=== PATIENT | female | born 1960 | race African-American/Black ===

== ENCOUNTER 2021-04-07 14:34 | Inpatient (IN) | payer SELFPAY ==
[~2021-04-07 14:34] MED LIST: Iopamidol-370 76% 500 ML 1 ML ONE
[2021-04-07] MEDS ORDERED: niCARdipine 20MG In NaCl 20 MG/200 ML BAG ONE (14:43)
[2021-04-07] MEDS ORDERED: Ondansetron PF 4 MG/2 ML Vial ONE ×2 (14:49→14:57)
[2021-04-07] MEDS ORDERED: Labetalol HCl 100 MG/20 ML VIAL ONE ×3 (14:49→19:12)
[2021-04-07 14:53] LABS: #Basophils 0.1 thou/uL (0.0-0.2); #Eosinphils 0.1 thou/uL (0.0-0.7); #Lymphocytes 1.8 thou/uL (1.20-3.40); #Monocytes 0.4 thou/uL (0.11-0.59); #Neutrophils 4.7 thou/uL (1.40-6.50); %Basophils 1.1 % (0.0-1.0); %Eosinophils 1.1 % (0.0-10.0); %Lymphocytes 25.4 % (21.0-51.0); %Monocytes 5.4 % (0.0-10.0); Hemoglobin 14.8 g/dL (12.0-16.0); Mean Corpuscular HGB CONC 32.5 g/dL (32.0-36.0); Mean Corpuscular Hemoglobin 29.7 pg (27.0-31.0); Mean Corpuscular Volume 91.4 fL (78.0-98.0); Mean Platelet Volume 9.8 fL (7.4-10.4); Platelet Count 218 thou/uL (130-400); RBC Distribution Width 12.5 % (11.5-14.5); Red Blood Cell (RBC) Count 4.98 mill/uL (4.20-5.40)
[2021-04-07 14:59] LABS: Prothrombin Time 12.8 sec (12.0-14.7)
[2021-04-07 15:00] LABS: PTT 24.2 sec (22.9-36.1)
[2021-04-07 15:42] LABS: Bilirubin Negative (Negative); Blood, Urine Negative (Negative); Clarity Clear (Clear); Glucose, Urine (Dipstick) 50 mg/dL (Negative); Ketone, Urine Trace mg/dL (Negative); Leukocyte Negative Leu/uL (Negative); Nitrite Negative (Negative); Protein, Urine (Dipstick) 20 mg/dL (Neg-Trace); Specific Gravity, Urine 1.026 (1.002-1.036); Urobilinogen Normal mg/dL (Less than 2)
[2021-04-07] MEDS ORDERED: Fentanyl 100 MCG/2 ML VIAL ONE (15:52)
[2021-04-07 16:15] LABS: Albumin 4.2 g/dL (3.4-4.8)
[2021-04-07] MEDS ORDERED: Lidocaine 1% PF 5 ML VIAL ONE (16:15)
[2021-04-07] MEDS ORDERED: Dexamethasone 20 MG/5 ML VIAL ONE (16:15)
[2021-04-07] MEDS ORDERED: Glycopyrrolate 0.2 MG/ML 5 ML SYRINGE ONE (16:15)
[2021-04-07] MEDS ORDERED: Rocuronium Bromide 10 MG/ML (10ML VIAL) ONE (16:15)
[2021-04-07] MEDS ORDERED: PROPOFOL 200 MG/20 ML VIAL ONE (16:15)
[2021-04-07] MEDS ORDERED: PHENYLEPHRINE-NS 100 MCG/ML 10 ML SYRINGE ONE (16:15)
[2021-04-07 16:16] LABS: Chloride 101 mmol/L (98-107); Potassium 3.3 mmol/L (3.5-5.1); Sodium 138 mmol/L (136-145)
[2021-04-07 16:17] LABS: Calcium 9.8 mg/dL (7.8-10.44); Globulin 3.8 g/dL (2.4-3.5); Glucose 148 mg/dL (80-115)
[2021-04-07 16:18] LABS: SARS-CoV-2 NAA Rapid Test Not Detected (NotDetected)
[2021-04-07 16:19] LABS: Anion Gap 17 mmol/L (10-20); Bilirubin, Total 0.7 mg/dL (0.2-1.2); Carbon Dioxide 23 mmol/L (23-31)
[2021-04-07 16:20] LABS: Alkaline Phosphatase 71 U/L (40-110); Calc. Creatinine Clearance 0 mL/min (70-130)
[2021-04-07 16:21] LABS: BUN (Urea Nitrogen) 14 mg/dL (9.8-20.1)
[2021-04-07 16:22] LABS: AST (SGOT) 42 U/L (5-34)
[2021-04-07 16:23] LABS: ALT (SGPT) 39 U/L (8-55); CK (CPK) 162 U/L (29-168)
[2021-04-07] MEDS ORDERED: Promethazine HCl 25 MG/ML VIAL IM PRN ×2 (17:38→19:03)
[2021-04-07] MEDS ORDERED: Promethazine HCl 25 MG/ML VIAL IVPB PRN (17:38)
[2021-04-07] MEDS ORDERED: Ondansetron HCl/PF 4 MG/2 ML Vial IVP PRN (17:38)
[2021-04-07] MEDS ORDERED: hydrALAZINE 20 MG/ML VIAL SLOW IVP PRN (17:40)
[2021-04-07] MEDS ORDERED: Morphine 2 MG/ML VIAL SLOW IVP PRN (17:41)
[2021-04-07] MEDS ORDERED: Labetalol HCl 100 MG/20 ML VIAL SLOW IVP PRN (17:41)
[2021-04-07] MEDS ORDERED: Acetaminophen/Codeine 30-300mg Tablet PO PRN (17:42)
[2021-04-07] MEDS ORDERED: Acetaminophen 325 MG TAB PO PRN (18:10)
[2021-04-07] MEDS ORDERED: niCARdipine 25 MG in Sodium Chloride 0.9% 250 ML 250 ML IVPB SCH (18:15)
[2021-04-07] MEDS ORDERED: niCARdipine 25 MG in Sodium Chloride 0.9% 250 ML 240 ML IVPB SCH (20:00)
[2021-04-07] MEDS: Sodium Chloride 0.9% 1,000 ML IV SCH (21:56)
[2021-04-07] MEDS: Docusate 100 MG CAP PO SCH (21:57)
[2021-04-07] MEDS: niCARdipine 50 MG in Sodium Chloride 0.9% 250 ML 230 ML IV SCH (22:15)
[2021-04-07] MEDS: Morphine 4 MG/ML VIAL SLOW IVP PRN (22:17)
[2021-04-07] MEDS: ceFAZolin Sodium/D5W 2 GM in Premix Bag 1 BAG IVPB SCH (23:29)
[2021-04-08] MEDS: Morphine 4 MG/ML VIAL SLOW IVP PRN ×3 (01:32→21:39)
[2021-04-08] MEDS: niCARdipine 50 MG in Sodium Chloride 0.9% 250 ML 230 ML IV SCH ×5 (02:00→22:29)
[2021-04-08] MEDS: levETIRAcetam in NS 500 MG in Premix Bag 1 BAG IVPB SCH ×2 (04:06→16:26)
[2021-04-08] MEDS: Sodium Chloride 0.9% 1,000 ML IV SCH ×2 (04:07→22:28)
[2021-04-08 04:15] LABS: #Lymphocytes 0.4 thou/uL (1.20-3.40); #Monocytes 0.2 thou/uL (0.11-0.59); #Neutrophils 7.9 thou/uL (1.40-6.50); %Eosinophils 0.2 % (0.0-10.0); %Lymphocytes 4.6 % (21.0-51.0); %Monocytes 1.9 % (0.0-10.0); %Neutrophils 93.3 % (42.0-75.0); Hemoglobin 11.8 g/dL (12.0-16.0); Mean Corpuscular HGB CONC 35.9 g/dL (32.0-36.0); Mean Corpuscular Hemoglobin 32.9 pg (27.0-31.0); Mean Corpuscular Volume 91.7 fL (78.0-98.0); Mean Platelet Volume 9.7 fL (7.4-10.4); Platelet Count 149 thou/uL (130-400); RBC Distribution Width 12.3 % (11.5-14.5); White Blood Cell (WBC) Count 8.4 thou/uL (4.8-10.8)
[2021-04-08 04:59] LABS: ALT (SGPT) 22 U/L (8-55); AST (SGOT) 20 U/L (5-34); Albumin 2.8 g/dL (3.4-4.8); Alkaline Phosphatase 47 U/L (40-110); Anion Gap 13 mmol/L (10-20); BUN (Urea Nitrogen) 10 mg/dL (9.8-20.1); Bilirubin, Total 0.5 mg/dL (0.2-1.2); Calc. Creatinine Clearance 0 mL/min (70-130); Calcium 6.4 mg/dL (7.8-10.44); Carbon Dioxide 16 mmol/L (23-31); Chloride 113 mmol/L (98-107); Globulin 2.2 g/dL (2.4-3.5); Glucose 137 mg/dL (80-115); Potassium 2.7 mmol/L (3.5-5.1); Sodium 139 mmol/L (136-145)
[2021-04-08] MEDS ORDERED: Electrolyte Replacement Protocol FS PRN (05:30)
[2021-04-08] MEDS ORDERED: Electrolyte Replacement Protocol 1 EACH FS SCH (05:30)
[2021-04-08] MEDS: Potassium Chloride 40 MEQ in Sodium Chloride 0.9% 250 ML 250 ML IVPB SCH ×2 (06:05→10:53)
[2021-04-08 06:47] LABS: Magnesium 1.3 mg/dL (1.6-2.6)
[2021-04-08] MEDS ORDERED: Magnesium Sulfate 4 GM in Sodium Chloride 0.9% 250 ML 250 ML IVPB SCH (07:00)
[2021-04-08] MEDS: Docusate 100 MG CAP PO SCH ×2 (08:32→22:25)
[2021-04-08] MEDS: ceFAZolin Sodium/D5W 2 GM in Premix Bag 1 BAG IVPB SCH (10:12)
[2021-04-08 18:17] LABS: Anion Gap 13 mmol/L (10-20); BUN (Urea Nitrogen) 12 mg/dL (9.8-20.1); Calc. Creatinine Clearance 100 mL/min (70-130); Calcium 8.5 mg/dL (7.8-10.44); Carbon Dioxide 21 mmol/L (23-31); Chloride 109 mmol/L (98-107); Glucose 122 mg/dL (80-115); Potassium 4.3 mmol/L (3.5-5.1); Sodium 139 mmol/L (136-145)
[2021-04-08] MEDS ORDERED: Lorazepam 2 MG/ML VIAL ONE (21:28)
[2021-04-08] MEDS ORDERED: Lorazepam 2 MG/ML VIAL SLOW IVP SCH (21:45)
[2021-04-08] MEDS: Lorazepam 2 MG/ML VIAL SLOW IVP PRN (23:25)
[2021-04-08] MEDS ORDERED: Haloperidol Lactate 5 MG/ML VIAL IM SCH (23:30)
[2021-04-09] MEDS: Labetalol HCl 100 MG/20 ML VIAL SLOW IVP PRN ×2 (02:10→03:36)
[2021-04-09] MEDS: niCARdipine 50 MG in Sodium Chloride 0.9% 250 ML 230 ML IV SCH ×2 (02:17→05:43)
[2021-04-09] MEDS: levETIRAcetam in NS 500 MG in Premix Bag 1 BAG IVPB SCH ×2 (04:11→16:05)
[2021-04-09 04:23] LABS: #Lymphocytes 0.9 thou/uL (1.20-3.40); #Monocytes 0.7 thou/uL (0.11-0.59); #Neutrophils 11.9 thou/uL (1.40-6.50); %Basophils 0.1 % (0.0-1.0); %Lymphocytes 6.7 % (21.0-51.0); %Monocytes 4.8 % (0.0-10.0); %Neutrophils 88.3 % (42.0-75.0); Hemoglobin 13.7 g/dL (12.0-16.0); Mean Corpuscular HGB CONC 36.5 g/dL (32.0-36.0); Mean Corpuscular Hemoglobin 33.3 pg (27.0-31.0); Mean Corpuscular Volume 91.2 fL (78.0-98.0); Mean Platelet Volume 9.7 fL (7.4-10.4); Platelet Count 177 thou/uL (130-400); RBC Distribution Width 12.5 % (11.5-14.5); Red Blood Cell (RBC) Count 4.11 mill/uL (4.20-5.40); White Blood Cell (WBC) Count 13.5 thou/uL (4.8-10.8)
[2021-04-09 04:36] LABS: Anion Gap 15 mmol/L (10-20); BUN (Urea Nitrogen) 13 mg/dL (9.8-20.1); Calc. Creatinine Clearance 102 mL/min (70-130); Calcium 8.3 mg/dL (7.8-10.44); Carbon Dioxide 20 mmol/L (23-31); Chloride 110 mmol/L (98-107); Glucose 130 mg/dL (80-115); Magnesium 2.3 mg/dL (1.6-2.6); Potassium 3.7 mmol/L (3.5-5.1); Sodium 141 mmol/L (136-145)
[2021-04-09] MEDS ORDERED: Amlodipine 10 MG TAB PO SCH (10:15)
[2021-04-09] MEDS: Docusate 100 MG CAP PO SCH ×2 (10:46→21:32)
[2021-04-09] MEDS: Sodium Chloride 0.9% 1,000 ML IV SCH (16:05)
[2021-04-09] MEDS ORDERED: Lorazepam 2 MG/ML VIAL IM SCH (22:20)
[2021-04-10] MEDS: Sodium Chloride 0.9% 1,000 ML IV SCH (00:55)
[2021-04-10] MEDS: levETIRAcetam in NS 500 MG in Premix Bag 1 BAG IVPB SCH ×2 (04:38→15:27)
[2021-04-10] MEDS: Amlodipine 10 MG TAB PO SCH (12:14)
[2021-04-10] MEDS: hydrALAZINE 20 MG/ML VIAL SLOW IVP PRN ×5 (12:14→20:49)
[2021-04-10] MEDS: Docusate 100 MG CAP PO SCH ×2 (12:15→20:49)
[2021-04-10 12:29] LABS: #Basophils 0.1 thou/uL (0.0-0.2); #Lymphocytes 2.6 thou/uL (1.20-3.40); #Monocytes 0.7 thou/uL (0.11-0.59); #Neutrophils 5.7 thou/uL (1.40-6.50); %Basophils 0.6 % (0.0-1.0); %Eosinophils 0.5 % (0.0-10.0); %Lymphocytes 28.6 % (21.0-51.0); %Monocytes 8.1 % (0.0-10.0); %Neutrophils 62.2 % (42.0-75.0); Hemoglobin 15.9 g/dL (12.0-16.0); Mean Corpuscular HGB CONC 34.1 g/dL (32.0-36.0); Mean Corpuscular Hemoglobin 31.1 pg (27.0-31.0); Mean Corpuscular Volume 91.1 fL (78.0-98.0); Mean Platelet Volume 8.8 fL (7.4-10.4); Platelet Count 209 thou/uL (130-400); RBC Distribution Width 12.5 % (11.5-14.5); Red Blood Cell (RBC) Count 5.13 mill/uL (4.20-5.40); White Blood Cell (WBC) Count 9.1 thou/uL (4.8-10.8)
[2021-04-10 12:57] LABS: Anion Gap 16 mmol/L (10-20); BUN (Urea Nitrogen) 13 mg/dL (9.8-20.1); Calc. Creatinine Clearance 96 mL/min (70-130); Calcium 9.4 mg/dL (7.8-10.44); Carbon Dioxide 21 mmol/L (23-31); Chloride 108 mmol/L (98-107); Glucose 91 mg/dL (80-115); Magnesium 2.2 mg/dL (1.6-2.6); Potassium 3.6 mmol/L (3.5-5.1); Sodium 141 mmol/L (136-145)
[2021-04-11] MEDS: Lorazepam 2 MG/ML VIAL SLOW IVP PRN (00:23)
[2021-04-11] MEDS: Labetalol HCl 100 MG/20 ML VIAL SLOW IVP PRN ×2 (02:13→05:40)
[2021-04-11] MEDS: levETIRAcetam in NS 500 MG in Premix Bag 1 BAG IVPB SCH ×2 (04:09→16:08)
[2021-04-11] MEDS: hydrALAZINE 20 MG/ML VIAL SLOW IVP PRN ×2 (04:09→08:34)
[2021-04-11] MEDS: Amlodipine 10 MG TAB PO SCH ×2 (04:52→09:54)
[2021-04-11 08:06] LABS: Hemoglobin 16.7 g/dL (12.0-16.0); Mean Corpuscular HGB CONC 34.5 g/dL (32.0-36.0); Mean Corpuscular Hemoglobin 31.5 pg (27.0-31.0); Mean Corpuscular Volume 91.3 fL (78.0-98.0); Mean Platelet Volume 9.8 fL (7.4-10.4); Platelet Count 163 thou/uL (130-400); RBC Distribution Width 12.6 % (11.5-14.5); White Blood Cell (WBC) Count 11.1 thou/uL (4.8-10.8)
[2021-04-11 08:28] LABS: Chloride 108 mmol/L (98-107); Potassium 4.4 mmol/L (3.5-5.1); Sodium 140 mmol/L (136-145)
[2021-04-11 08:35] LABS: Calcium 8.6 mg/dL (7.8-10.44); Glucose 107 mg/dL (80-115)
[2021-04-11] MEDS: Docusate 100 MG CAP PO SCH ×2 (08:35→20:42)
[2021-04-11 08:37] LABS: Anion Gap 22 mmol/L (10-20); Carbon Dioxide 14 mmol/L (23-31)
[2021-04-11 08:39] LABS: Calc. Creatinine Clearance 100 mL/min (70-130)
[2021-04-11 08:40] LABS: BUN (Urea Nitrogen) 15 mg/dL (9.8-20.1)
[2021-04-11 08:41] LABS: Magnesium 2.1 mg/dL (1.6-2.6)
[2021-04-11 09:04] LABS: Band 1 % (5-11); Lymphocytes 24 % (21-51); MDiff Complete? YES; Monocytes 4 % (0-10); Neutrophil 71 % (42-75); Nucleated RBC 1 % (0); RBC Morphology Normal
[2021-04-11] MEDS: hydrALAZINE 25 MG TAB PO SCH ×3 (09:53→20:42)
[2021-04-11] MEDS: Ondansetron PF 4 MG/2 ML Vial IVP PRN (14:36)
[2021-04-11] MEDS: Acetaminophen 650 MG Suppository PR PRN (14:36)
[2021-04-11] MEDS ORDERED: Mineral Oil ENEMA PR SCH ×2 (16:00→16:15)
[2021-04-12] MEDS: hydrALAZINE 20 MG/ML VIAL SLOW IVP PRN ×2 (00:26→16:02)
[2021-04-12] MEDS: levETIRAcetam in NS 500 MG in Premix Bag 1 BAG IVPB SCH ×2 (04:14→16:02)
[2021-04-12] MEDS: Labetalol HCl 100 MG/20 ML VIAL SLOW IVP PRN (04:15)
[2021-04-12 06:28] LABS: #Lymphocytes 1.7 thou/uL (1.20-3.40); #Monocytes 0.8 thou/uL (0.11-0.59); #Neutrophils 6.3 thou/uL (1.40-6.50); %Basophils 0.2 % (0.0-1.0); %Eosinophils 0.3 % (0.0-10.0); %Lymphocytes 18.9 % (21.0-51.0); %Monocytes 9.5 % (0.0-10.0); Hemoglobin 15.6 g/dL (12.0-16.0); Mean Corpuscular HGB CONC 35.4 g/dL (32.0-36.0); Mean Corpuscular Volume 90.2 fL (78.0-98.0); Mean Platelet Volume 9.3 fL (7.4-10.4); Platelet Count 247 thou/uL (130-400); RBC Distribution Width 12.6 % (11.5-14.5); Red Blood Cell (RBC) Count 4.88 mill/uL (4.20-5.40); White Blood Cell (WBC) Count 8.9 thou/uL (4.8-10.8)
[2021-04-12 06:34] LABS: Anion Gap 16 mmol/L (10-20); BUN (Urea Nitrogen) 27 mg/dL (9.8-20.1); Calc. Creatinine Clearance 88 mL/min (70-130); Calcium 9.7 mg/dL (7.8-10.44); Carbon Dioxide 21 mmol/L (23-31); Chloride 108 mmol/L (98-107); Glucose 122 mg/dL (80-115); Potassium 3.2 mmol/L (3.5-5.1); Sodium 142 mmol/L (136-145)
[2021-04-12] MEDS: Amlodipine 10 MG TAB PO SCH (08:20)
[2021-04-12] MEDS: hydrALAZINE 25 MG TAB PO SCH ×3 (08:21→21:29)
[2021-04-12] MEDS ORDERED: Potassium Chloride 20 MEQ TAB PO SCH (08:30)
[2021-04-12] MEDS: Ondansetron PF 4 MG/2 ML Vial IVP PRN (08:38)
[2021-04-12] MEDS ORDERED: hydrALAZINE 20 MG/ML VIAL SLOW IVP PRN (08:39)
[2021-04-12] MEDS ORDERED: Labetalol HCl 100 MG/20 ML VIAL SLOW IVP PRN (08:39)
[2021-04-12] MEDS: Docusate 100 MG CAP PO SCH ×2 (08:43→21:35)
[2021-04-12] MEDS ORDERED: Potassium Chloride 20 MEQ in Premix Bag 1 BAG IVPB SCH ×2 (08:45→09:45)
[2021-04-12] MEDS ORDERED: cloNIDine 0.2mg/24 Hour PATCH TD SCH (09:00)
[2021-04-12] MEDS: Acetaminophen 650 MG Suppository PR PRN (09:49)
[2021-04-12] MEDS ORDERED: Bisacodyl 10 MG SUPP PR PRN (11:47)
[2021-04-12] MEDS: Morphine 4 MG/ML VIAL SLOW IVP PRN (11:50)
[2021-04-12] MEDS ORDERED: Sodium Chloride 0.9% (PF) 10 ML VIAL FS PRN (12:00)
[2021-04-12] MEDS ORDERED: Pantoprazole 40 MG VIAL IVP SCH (12:00)
[2021-04-12 14:38] LABS: ALT (SGPT) 21 U/L (8-55); AST (SGOT) 21 U/L (5-34); Albumin 4.2 g/dL (3.4-4.8); Alkaline Phosphatase 62 U/L (40-110); Anion Gap 18 mmol/L (10-20); BUN (Urea Nitrogen) 33 mg/dL (9.8-20.1); Bilirubin, Total 0.9 mg/dL (0.2-1.2); Calc. Creatinine Clearance 100 mL/min (70-130); Calcium 9.7 mg/dL (7.8-10.44); Carbon Dioxide 21 mmol/L (23-31); Chloride 109 mmol/L (98-107); Globulin 3.4 g/dL (2.4-3.5); Glucose 108 mg/dL (80-115); Potassium 3.7 mmol/L (3.5-5.1); Protein, Total 7.6 g/dL (5.8-8.1); Sodium 144 mmol/L (136-145)
[2021-04-13] MEDS: hydrALAZINE 20 MG/ML VIAL SLOW IVP PRN ×2 (02:43→09:08)
[2021-04-13] MEDS: levETIRAcetam in NS 500 MG in Premix Bag 1 BAG IVPB SCH ×3 (04:30→17:36)
[2021-04-13] MEDS: Docusate 100 MG CAP PO SCH ×2 (09:08→20:35)
[2021-04-13] MEDS: Pantoprazole 40 MG VIAL IVP SCH (09:08)
[2021-04-13] MEDS: hydrALAZINE 25 MG TAB PO SCH ×3 (09:47→20:35)
[2021-04-13] MEDS: Amlodipine 10 MG TAB PO SCH (09:48)
[2021-04-13 16:34] LABS: #Basophils 0.1 thou/uL (0.0-0.2); #Eosinphils 0.1 thou/uL (0.0-0.7); #Lymphocytes 1.4 thou/uL (1.20-3.40); #Monocytes 0.9 thou/uL (0.11-0.59); #Neutrophils 6.5 thou/uL (1.40-6.50); %Basophils 0.8 % (0.0-1.0); %Eosinophils 0.6 % (0.0-10.0); %Lymphocytes 15.6 % (21.0-51.0); %Monocytes 10.2 % (0.0-10.0); %Neutrophils 72.8 % (42.0-75.0); Hemoglobin 14.8 g/dL (12.0-16.0); Mean Corpuscular HGB CONC 34.3 g/dL (32.0-36.0); Mean Corpuscular Hemoglobin 31.2 pg (27.0-31.0); Mean Corpuscular Volume 91.2 fL (78.0-98.0); Mean Platelet Volume 9.5 fL (7.4-10.4); Platelet Count 262 thou/uL (130-400); RBC Distribution Width 12.4 % (11.5-14.5); Red Blood Cell (RBC) Count 4.74 mill/uL (4.20-5.40); White Blood Cell (WBC) Count 8.9 thou/uL (4.8-10.8)
[2021-04-13 16:50] LABS: Anion Gap 16 mmol/L (10-20); BUN (Urea Nitrogen) 35 mg/dL (9.8-20.1); Calc. Creatinine Clearance 88 mL/min (70-130); Calcium 9.4 mg/dL (7.8-10.44); Carbon Dioxide 20 mmol/L (23-31); Chloride 108 mmol/L (98-107); Glucose 127 mg/dL (80-115); Sodium 141 mmol/L (136-145)
[2021-04-13] MEDS: levETIRAcetam 500 MG TAB PO SCH (17:37)
[2021-04-13] MEDS: Potassium Chloride 20 MEQ in Premix Bag 1 BAG IVPB SCH ×3 (21:44→23:17)
[2021-04-13] MEDS ORDERED: Potassium Chloride 20 MEQ TAB PO SCH (22:00)
[2021-04-14] MEDS: levETIRAcetam 500 MG TAB PO SCH ×2 (04:38→16:13)
[2021-04-14] MEDS: hydrALAZINE 20 MG/ML VIAL SLOW IVP PRN (05:40)
[2021-04-14] MEDS: Amlodipine 10 MG TAB PO SCH (09:13)
[2021-04-14] MEDS: Docusate 100 MG CAP PO SCH (09:13)
[2021-04-14] MEDS: hydrALAZINE 25 MG TAB PO SCH ×2 (09:13→14:42)
[2021-04-14] MEDS: Pantoprazole 40 MG VIAL IVP SCH (09:14)
[2021-04-14 12:59] LABS: Anion Gap 14 mmol/L (10-20); BUN (Urea Nitrogen) 31 mg/dL (9.8-20.1); Calc. Creatinine Clearance 98 mL/min (70-130); Calcium 9.2 mg/dL (7.8-10.44); Carbon Dioxide 21 mmol/L (23-31); Chloride 109 mmol/L (98-107); Glucose 98 mg/dL (80-115); Potassium 3.3 mmol/L (3.5-5.1); Sodium 141 mmol/L (136-145)
[2021-04-14] MEDS ORDERED: Potassium Chloride 20 MEQ TAB PO SCH (13:45)
[2021-04-14] MEDS: Carvedilol 3.125 MG TAB PO SCH (16:13)
[2021-04-15] MEDS: Docusate 100 MG CAP PO SCH ×3 (00:54→20:46)
[2021-04-15] MEDS: hydrALAZINE 25 MG TAB PO SCH ×4 (00:55→20:46)
[2021-04-15] MEDS: hydrALAZINE 20 MG/ML VIAL SLOW IVP PRN ×2 (01:03→04:51)
[2021-04-15] MEDS: levETIRAcetam 500 MG TAB PO SCH ×2 (04:52→16:32)
[2021-04-15] MEDS: Losartan 25 MG TAB PO SCH (09:30)
[2021-04-15] MEDS: Pantoprazole 40 MG VIAL IVP SCH (09:31)
[2021-04-15] MEDS: Amlodipine 10 MG TAB PO SCH (09:31)
[2021-04-15] MEDS: Carvedilol 3.125 MG TAB PO SCH ×2 (09:31→16:32)
[2021-04-15] MEDS ORDERED: Carvedilol 3.125 MG TAB PO SCH (11:15)
[2021-04-15 12:35] LABS: SARS-CoV-2 PCR by NAA Not Detected (NotDetected)
[2021-04-15 14:14] VITALS: BMI 29.4
[2021-04-15 15:17] LABS: Albumin 3.7 g/dL (3.4-4.8); Anion Gap 14 mmol/L (10-20); BUN (Urea Nitrogen) 24 mg/dL (9.8-20.1); BUN/Creatinine Ratio 29.27; Calc. Creatinine Clearance 97 mL/min (70-130); Calcium 9.5 mg/dL (7.8-10.44); Carbon Dioxide 22 mmol/L (23-31); Chloride 107 mmol/L (98-107); Glucose 102 mg/dL (80-115); Phosphorus 3.6 mg/dL (2.3-4.7); Potassium 3.8 mmol/L (3.5-5.1); Sodium 139 mmol/L (136-145)
[2021-04-15 15:38] LABS: Magnesium 2.2 mg/dL (1.6-2.6)
[2021-04-16] MEDS: levETIRAcetam 500 MG TAB PO SCH ×2 (04:38→16:19)
[2021-04-16] MEDS: Docusate 100 MG CAP PO SCH (08:31)
[2021-04-16] MEDS: Losartan 25 MG TAB PO SCH (08:31)
[2021-04-16] MEDS: Pantoprazole 40 MG VIAL IVP SCH (08:31)
[2021-04-16] MEDS: Carvedilol 3.125 MG TAB PO SCH ×2 (08:31→16:19)
[2021-04-16] MEDS ORDERED: NIFEdipine XL 60 MG TAB PO SCH (09:00)
[2021-04-16] MEDS ORDERED: NIFEdipine XL 30 MG TAB PO SCH (12:15)
[2021-04-16 15:47] VITALS: BP 151/80; TEMP 99.1
[2021-04-17] MEDS ORDERED: NIFEdipine XL 90 MG TAB PO SCH (09:00)
[2021-04-19 16:15] LABS: Renin Activity 1.013 ng/mL/hr (0.167-5.380)
== END 2021-04-16 17:03 | disposition home health service (06) | DRG 23 ==
LOC: ERS 14:34 → EDBD 16:12 → SURG A 16:12 → ERHOLD 16:27 → UNDOADMIN 16:27 → CCU 21:04 → 3SE 04-09 14:29
PROVIDERS: ADMIT Internal Medicine; ATTEND Internal Medicine
PROC: 00C70ZZ Extirpation of Matter from Cerebral Hemisphere, Open Approach (ICD-10-PCS; principal; 2021-04-07)
DX: I61.8 Other nontraumatic intracerebral hemorrhage (principal); G93.6 Cerebral edema; G81.91 Hemiplegia, unspecified affecting right dominant side; I16.1 Hypertensive emergency; R47.01 Aphasia; G81.94 Hemiplegia, unspecified affecting left nondominant side; Z66 Do not resuscitate; I10 Essential (primary) hypertension; R13.10 Dysphagia, unspecified; E87.6 Hypokalemia; E83.42 Hypomagnesemia; I95.1 Orthostatic hypotension; Z91.14 Patient's other noncompliance with medication regimen; I60.8 Other nontraumatic subarachnoid hemorrhage; R47.02 Dysphasia; R29.810 Facial weakness; Z79.891 Long term (current) use of opiate analgesic; Z79.899 Other long term (current) drug therapy; Z20.822 Contact with and (suspected) exposure to COVID-19
CPT/HCPCS: 0240U; 36415; 51702; 70450; 70496; 70498; 71045; 74018; 74230; 80048; 80053; 80069; 81003; 82088; 82550; 83735; 84244; 84484; 85025; 85610; 85730; 86850; 86900; 86901; 88307; 93005; 93306; 94760; 96365; 96375; C1713; C9113; J0360; J1100; J1630; J1953; J2060; J2270; J2405; J2550; J2704; J3010; J3475; J3480; J7050; Q9967; U0003; U0005